=== PATIENT | female | born 1945 | race Caucasian/White ===

== ENCOUNTER 2018-02-07 15:25 | Emergency (ER) | payer MEDICARE ==
[~2018-02-07] VITALS: Ht 157.5 cm; Wt 72.6 kg
[2018-02-07] MEDS ORDERED: AZITHROMYCIN 500MG/NS 250 ML 250 ML IV STA (17:47)
[2018-02-07] MEDS ORDERED: IPRATROPIUM BROMIDE 0.02% 2.5 ML NEB NEB STA (17:47)
[2018-02-07] MEDS ORDERED: ALBUTEROL SULF 0.083% NEB SOLN 3 ML NEB NEB STA (17:47)
[2018-02-07] MEDS ORDERED: CEFTRIAXONE SOD 1 GM VIAL IV SCH (18:00)
[2018-02-07] MEDS ORDERED: ASPIRIN 81 MG CHEW TAB PO ONE (18:00)
[2018-02-07 18:40] LABS: BASOPHILS % 0.3 % (0.0-1.0); EOSINOPHILS % 0.4 % (0.0-6.0); HEMATOCRIT 36.5 % (34.2-44.1); HEMOGLOBIN 10.9 g/dL (12.0-16.0); LYMPHOCYTES % 10.6 % (18.0-39.1); MEAN CORPUSCULAR HEMOGLOBIN 25.6 pg (28-32); MEAN CORPUSCULAR HGB CONC 29.9 g/dL (31-35); MEAN CORPUSCULAR VOLUME 85.7 fL (81-99); MONOCYTES # (AUTO) 0.8 (0.2-0.8); MONOCYTES % 8.6 % (4.4-11.3); NEUTROPHILS # (AUTO) 7.1 (2.1-6.9); NEUTROPHILS % 79.8 % (38.7-80.0); PLATELET COUNT 214 x10e3/uL (140-360); RED BLOOD COUNT 4.26 x10e6/uL (3.6-5.1); RED CELL DISTRIBUTION WIDTH 15.4 % (11.7-14.4)
--- NOTE | 2018-02-07 18:43 | Diagnostic Imaging Report ---
PROCEDURE: Frontal and lateral views of the chest. COMPARISON: None. INDICATIONS: cough, sob FINDINGS: Exam limited by patient rotation. Lines/tubes: None. Lungs: The lungs are well-inflated. Patchy atelectatic changes in the lingula. No consolidation or pulmonary edema. Pleura: There is no pleural effusion or pneumothorax. Heart and mediastinum: Cardiac silhouette is unremarkable. Pulmonary vasculature is normal. Bones: No acute bony abnormality. IMPRESSION: 1. lingular atelectatic changes. Otherwise lungs are clear. No consolidation or effusion. Ankit Jolley M.D. Dictated by: Ankit Jolley M.D. on 02/07/2018 at 18:46 Electronically approved by: Ankit Jolley M.D. on 02/07/2018 at 18:46
[2018-02-07 18:49] LABS: INR 1.07; PARTIAL THROMBOPLASTIN TIME 28.1 seconds (23.8-35.5); PROTHROMBIN TIME 13.1 seconds (11.9-14.5)
[2018-02-07 18:56] LABS: ALANINE AMINOTRANSFERASE 8 IU/L (0-55); ALBUMIN 3.7 g/dL (3.5-5.0); ALBUMIN/GLOBULIN RATIO 1.1 (0.8-2.0); ALKALINE PHOSPHATASE 119 IU/L (40-150); BLOOD UREA NITROGEN 9 mg/dL (7-26); BUN/CREATININE RATIO 13 (6-25); CALCIUM 9.5 mg/dL (8.4-10.2); CARBON DIOXIDE 32 mmol/L (22-29); CHLORIDE 90 mmol/L (98-107); CREATINE KINASE 38 IU/L (29-168); CREATININE, SERUM 0.67 mg/dL (0.57-1.11); EST GLOMERULAR FILTRATION RATE > 60 ML/MIN (60-); GLUCOSE 169 mg/dL (74-118); MAGNESIUM 1.8 MG/DL (1.3-2.1); SODIUM 130 mmol/L (136-145)
[2018-02-07 19:16] LABS: THYROID STIMULATING HORMONE 1.025 uIU/mL (0.350-4.940)
== END 2018-02-07 20:24 | disposition home or self-care (01) ==
LOC: ER 15:25
DX: R05 Cough (principal); J20.9 Acute bronchitis, unspecified
CPT/HCPCS: 36415; 71046; 80053; 82550; 82553; 83735; 84443; 84484; 85025; 85610; 85730; 87040; 99284